=== PATIENT | female | born 1950 | race Caucasian/White ===

== ENCOUNTER → 2017-04-25 | Outpatient (CLI) | payer MEDICARE, OTHER ==
[~2017-04-25] MED LIST: ALBU90OI61; ALMOTRIPTAN; ALPR.25; CARI350; CODACE30; HYDCHL12.5; LISHYD1012; LORA2 PO; OMEP20ER PO; PROACE100 PO; RXLORA1 PO; TOPI25
[2017-04-27 11:29] LABS: HPV Genotype 16 Not Detected (NOTDET); HPV Genotype 18 Not Detected (NOTDET)
[2017-05-03 15:44] LABS: HPV High Risk Other Not Detected (NOTDET)
== END | disposition home or self-care (01) ==
LOC: LAB 10:18
PROVIDERS: Obstetrics & Gynecology
DX: N95.0 Postmenopausal bleeding (principal)
CPT/HCPCS: 87624; G0123

== ENCOUNTER 2017-06-30 11:50 | Day surgery (SDC) | payer MEDICARE, OTHER ==
[~2017-06-30] VITALS: Ht 167.6 cm; Wt 108.0 kg
[~2017-06-30 11:50] MED LIST changes: -ALBU90OI61
== END 2017-06-30 15:05 | disposition home or self-care (01) ==
LOC: ORSCSDS 11:50
PROVIDERS: Obstetrics & Gynecology
PROC: 0UDB8ZX Extraction of Endometrium, Via Natural or Artificial Opening Endoscopic, Diagnostic (ICD-10-PCS; principal; 2017-06-30 13:00)
PROC: 0UB98ZX Excision of Uterus, Via Natural or Artificial Opening Endoscopic, Diagnostic (ICD-10-PCS; principal; 2017-06-30 13:00)
DX: N95.0 Postmenopausal bleeding (principal); N84.0 Polyp of corpus uteri; I10 Essential (primary) hypertension; M79.7 Fibromyalgia; F41.9 Anxiety disorder, unspecified; Z87.891 Personal history of nicotine dependence; Z79.899 Other long term (current) drug therapy
CPT/HCPCS: 88305; J1885; J2250; J3010; J7040; J7120

== ENCOUNTER → 2017-09-26 | Outpatient (CLI) | payer MEDICARE, OTHER ==
[~2017-09-26] MED LIST changes: +ALBU90OI61
[2017-09-26 14:34] LABS: Alanine Aminotransfer (ALT/SGP 21 U/L (12-78); Albumin, Blood 3.9 g/dL (3.4-5.0); Albumin/Globulin Ratio 1.3 (0.8-1.8); Alk Phos 79 U/L (50-136); Anion Gap 7 mmol/L (6-16); Aspartate Aminotrans (AST/SGOT 25 U/L (12-37); Bilirubin, Total 0.6 mg/dL (0.1-1.0); Blood Urea Nitrogen 18 mg/dL (8-24); Bun/Creatinine Ratio 18.7 (12.0-20.0); CO2, Blood 31 mmol/L (21-32); Calcium, Blood 9.3 mg/dL (8.5-10.1); Chloride, Blood 104 mmol/L (98-108); Creatinine, Blood 0.97 mg/dL (0.40-1.00); Glomerular Filtration Rate >60 (60-); Glucose, Blood 97 mg/dL (70-99); Potassium, Blood 3.6 mmol/L (3.5-5.5); Sodium, Blood 142 mmol/L (136-145); Total Protein, Blood 6.9 g/dL (6.4-8.2)
== END | disposition home or self-care (01) ==
LOC: LAB SHORT 09:18 → LAB 09:18
PROVIDERS: Hospitalist
DX: R10.11 Right upper quadrant pain (principal)
CPT/HCPCS: 80053

== ENCOUNTER → 2017-09-28 | Outpatient (CLI) | payer MEDICARE, OTHER | END | disposition home or self-care (01) | LOC: PLD 07:25 → LAB SHORT 07:25 | DX: L30.8 Other specified dermatitis (principal) | CPT/HCPCS: 88305; 88313 ==

== ENCOUNTER 2017-10-27 23:42 | Emergency (ER) | payer MEDICARE, OTHER ==
[~2017-10-27] VITALS: Ht 170.2 cm; Wt 106.6 kg
== END 2017-10-28 00:59 | disposition home or self-care (01) ==
LOC: ER 23:42
DX: I10 Essential (primary) hypertension (principal); Z88.8 Allergy status to other drugs, medicaments and biological substances; Z91.048 Other nonmedicinal substance allergy status; Z88.5 Allergy status to narcotic agent; Z79.899 Other long term (current) drug therapy; K21.9 Gastro-esophageal reflux disease without esophagitis; Z87.891 Personal history of nicotine dependence
CPT/HCPCS: 99283

== ENCOUNTER → 2018-04-05 | Outpatient (CLI) | payer MEDICARE, OTHER ==
[2018-04-05 15:03] LABS: BASOPHILS ABSOLUTE AUTO 0.04 K/mm3 (0.00-0.23); BASOPHILS PERCENT AUTO 1 % (0-2); EOSINOPHILS ABSOLUTE AUTO 0.15 K/mm3 (0.00-0.68); EOSINOPHILS PERCENT AUTO 3 % (0-6); Hematocrit 43.3 % (33.0-51.0); Hemoglobin 14.7 g/dL (11.5-16.0); IMMATURE GRAN ABSOLUTE AUTO 0.01 K/mm3 (0.00-0.10); IMMATURE GRAN PERCENT AUTO 0 % (0-1); LYMPHOCYTES ABSOLUTE AUTO 1.25 K/mm3 (0.84-5.20); LYMPHOCYTES PERCENT AUTO 24 % (21-46); MONOCYTES ABSOLUTE AUTO 0.44 K/mm3 (0.16-1.47); MONOCYTES PERCENT AUTO 9 % (4-13); Mean Corpuscular HGB 32.4 pg (26.0-34.0); Mean Corpuscular HGB Conc 33.9 g/dL (31.5-36.5); Mean Corpuscular Volume 95 fL (80-100); Mean Platelet Volume 11.3 fL (9.1-12.4); NEUTROPHILS ABSOLUTE AUTO 3.28 K/mm3 (1.96-9.15); NEUTROPHILS PERCENT AUTO 63 % (41-73); Platelet Count 249 K/mm3 (150-400); RDW Coefficient Variation 13.3 % (11.7-14.2); RDW Standard Deviation 47.5 fL (35.1-46.3); Red Blood Cell Count 4.54 M/mm3 (3.80-5.20); White Blood Cell Count 5.17 K/mm3 (4.00-11.30)
== END | disposition home or self-care (01) ==
LOC: LAB SHORT 14:10 → LAB 14:10
PROVIDERS: Hospitalist
DX: R00.2 Palpitations (principal)
CPT/HCPCS: 85025

== ENCOUNTER 2020-05-23 08:59 | Day surgery (SDC) | payer MEDICARE, OTHER ==
[~2020-05-23 08:59] MED LIST changes: -HYDCHL12.5; +HYDCHL12.5 PO
[2020-06-05] MEDS ORDERED: ACET500 PO (16:02)
[2020-06-05] MEDS ORDERED: ASCO500 PO (16:02)
[2020-06-05] MEDS ORDERED: VITAMIN D310 MC4 PO (16:03)
[2020-06-05] MEDS ORDERED: MULVITA PO (16:03)
[2020-06-05] MEDS ORDERED: CARV6.25 PO (16:03)
[2020-06-05] MEDS ORDERED: TOCO1000 PO (16:04)
[2020-06-05] MEDS ORDERED: ZINC15 PO (16:04)
== END 2020-05-23 23:10 | disposition home or self-care (01) ==
LOC: MOI US 08:59 → MOI MAM 09:30 → MOI US 09:30 → MOI MAM 05-28 09:00 → MOI US 05-28 09:00
DX: C50.412 Malignant neoplasm of upper-outer quadrant of left female breast (principal); Z17.0 Estrogen receptor positive status [ER+]
CPT/HCPCS: 19083; 77065; 88305; 88342; 88360; A4648

== ENCOUNTER 2020-06-06 07:47 | Day surgery (SDC) | payer MEDICARE, OTHER ==
[~2020-06-06 07:47] MED LIST changes: +ACET500 PO; +ASCO500 PO; +CARV6.25 PO; +MULVITA PO; +TOCO1000 PO; +VITAMIN D310 MC4 PO; +ZINC15 PO
== END 2020-06-06 22:48 | disposition home or self-care (01) ==
LOC: MOI MAM 07:47
DX: C50.412 Malignant neoplasm of upper-outer quadrant of left female breast (principal); Z17.0 Estrogen receptor positive status [ER+]
CPT/HCPCS: 19285; 77065; A4648

== ENCOUNTER 2020-06-10 10:06 | Day surgery (SDC) | payer MEDICARE, OTHER ==
[~2020-06-10] VITALS: Ht 167.6 cm; Wt 124.6 kg
--- NOTE | 2020-06-10 12:36 | NUR ---
Ambulatory in Day Surgery History, Chart, Medications and Allergies reviewed before start of procedure.Patient confirms NPO status and agrees with scheduled surgery. Patient reports completing Chlorhexadine shower X2 prior to admission to hospital.
--- NOTE | 2020-06-10 17:47 | NUR ---
REVIEWED DC INSTRUCTIONS W/ PT SON ATILIO AND WITH PT. PT STATES LEG PAIN MIGHT BE COMING FROM HER BACK, STATES OVERALL PAIN BETTER THAN WHEN SHE WOKE UP IN PACU. GAVE NORCO PER ORDER, PT HAD PUDDING AND WATER, DISCUSSED PAIN MEDICATION WITH PT PT DOES NOT HAVE TRUE ALLERGY TO OXYCODONE AND CODEINE, PT AGREEABLE TO TRY HYDROCODONE ORDERED. BREAST BINDER ON,C/D/I. REPORT GIVEN TO STEVEN.
--- NOTE | 2020-06-10 18:15 | NUR ---
PT CONTINUES TO DENY ABD PAIN OR NAUSEA p MEDS. PT SITS AT SIDE OF BED c MINIMAL ASSISTANCE. IV DC'D, CATH INTACT AND PRESSURE DRESSING APPLIED. PT CONTINUES TO VERBALIZE AN UNDERSTANDING OF INSTRUCTIONS. NO QUESTIONS. ASSISTED c DRESSING, DRESSING CLEAN AND INTACT. TAKEN OTD IN NAD VIA WC. SON CONTINUES TO VERBALIZE AN UNDERSTANDING OF INSTRUCTIONS. TRANSFERS TO CAR s DIFFICULTY.
== END 2020-06-10 23:37 | disposition home or self-care (01) ==
LOC: NM 10:06 → ORSCMMR 10:06 → NM 11:30
PROVIDERS: Surgery
PROC: 07B60ZX Excision of Left Axillary Lymphatic, Open Approach, Diagnostic (ICD-10-PCS; principal; 2020-06-10 12:30)
PROC: 0HBU0ZZ Excision of Left Breast, Open Approach (ICD-10-PCS; principal; 2020-06-10 12:30)
DX: C50.412 Malignant neoplasm of upper-outer quadrant of left female breast (principal); Z17.0 Estrogen receptor positive status [ER+]; D36.0 Benign neoplasm of lymph nodes; I10 Essential (primary) hypertension; J44.9 Chronic obstructive pulmonary disease, unspecified; E66.01 Morbid (severe) obesity due to excess calories; Z68.41 Body mass index [BMI] 40.0-44.9, adult; Z79.899 Other long term (current) drug therapy
CPT/HCPCS: 38792; 76098; 88307; 88341; 88342; A9270; A9520; J0690; J1100; J1885; J2250; J2405; J2704; J3010; J7120; Q9968

== ENCOUNTER → 2020-08-18 | Outpatient (CLI) | payer MEDICARE, OTHER ==
[2020-08-19 10:55] LABS: Candida species (DNA Probe) Negative (NEGATIVE); G. vaginalis (DNA Probe) Negative (NEGATIVE); T. vaginalis (DNA Probe) Negative (NEGATIVE)
== END | disposition home or self-care (01) ==
LOC: LAB 15:46 → LAB SHORT 15:46
PROVIDERS: Obstetrics & Gynecology
DX: N76.0 Acute vaginitis (principal)
CPT/HCPCS: 87480; 87510; 87660

== ENCOUNTER → 2020-09-10 | Outpatient (CLI) | payer MEDICARE, OTHER | LOC: LAB SHORT 14:57 → LAB 14:57 | DX: N89.8 Other specified noninflammatory disorders of vagina (principal); Z88.8 Allergy status to other drugs, medicaments and biological substances; Z88.5 Allergy status to narcotic agent; Z91.048 Other nonmedicinal substance allergy status; Z88.6 Allergy status to analgesic agent | CPT/HCPCS: 87070; 87205 ==

== ENCOUNTER 2021-01-09 19:49 | Emergency (ER) | payer MEDICARE, OTHER ==
[~2021-01-09] VITALS: Ht 167.6 cm; Wt 121.6 kg
[2021-01-09 20:22] LABS: BASOPHILS ABSOLUTE AUTO 0.04 K/mm3 (0.00-0.23); BASOPHILS PERCENT AUTO 0 % (0-2); EOSINOPHILS ABSOLUTE AUTO 0.19 K/mm3 (0.00-0.68); EOSINOPHILS PERCENT AUTO 2 % (0-6); Hematocrit 42.9 % (33.0-51.0); Hemoglobin 14.6 g/dL (11.5-16.0); IMMATURE GRAN ABSOLUTE AUTO 0.02 K/mm3 (0.00-0.10); IMMATURE GRAN PERCENT AUTO 0 % (0-1); LYMPHOCYTES PERCENT AUTO 19 % (21-46); MONOCYTES PERCENT AUTO 9 % (4-13); Mean Corpuscular HGB 32.4 pg (26.0-34.0); Mean Corpuscular Volume 95 fL (80-100); Mean Platelet Volume 10.7 fL (9.1-12.4); NEUTROPHILS ABSOLUTE AUTO 6.61 K/mm3 (1.96-9.15); NEUTROPHILS PERCENT AUTO 70 % (41-73); Platelet Count 251 K/mm3 (150-400); RDW Coefficient Variation 13.7 % (11.7-14.2); RDW Standard Deviation 48.5 fL (35.1-46.3); Red Blood Cell Count 4.51 M/mm3 (3.80-5.20); White Blood Cell Count 9.46 K/mm3 (4.00-11.30)
[2021-01-09 20:41] LABS: Alanine Aminotransfer (ALT/SGP 23 U/L (12-78); Albumin, Blood 3.3 g/dL (3.4-5.0); Albumin/Globulin Ratio 0.8 (0.8-1.8); Alk Phos 75 U/L (50-136); Anion Gap 4 mmol/L (6-16); Aspartate Aminotrans (AST/SGOT 16 U/L (12-37); Bilirubin, Total 0.2 mg/dL (0.1-1.0); Blood Urea Nitrogen 21 mg/dL (8-24); CO2, Blood 28 mmol/L (21-32); Calcium, Blood 9.5 mg/dL (8.5-10.1); Chloride, Blood 110 mmol/L (98-108); Creatinine, Blood 0.95 mg/dL (0.40-1.00); Globulin, Blood 4.1 g/dL (2.2-4.0); Glomerular Filtration Rate 58 (60-); Glucose, Blood 121 mg/dL (70-99); Potassium, Blood 3.6 mmol/L (3.5-5.5); Sodium, Blood 142 mmol/L (136-145); Total Protein, Blood 7.4 g/dL (6.4-8.2); Troponin I <0.015 ng/mL (0.000-0.040)
== END 2021-01-09 22:32 | disposition home or self-care (01) ==
LOC: ER 19:49
PROVIDERS: Physician Assistant
DX: R07.2 Precordial pain (principal); Z91.048 Other nonmedicinal substance allergy status; Z88.8 Allergy status to other drugs, medicaments and biological substances; Z88.5 Allergy status to narcotic agent; Z88.1 Allergy status to other antibiotic agents; Z79.899 Other long term (current) drug therapy; K21.9 Gastro-esophageal reflux disease without esophagitis; I10 Essential (primary) hypertension; Z85.3 Personal history of malignant neoplasm of breast
CPT/HCPCS: 36415; 71045; 80053; 83690; 84484; 85025; 93005; 93010; 96374; 99285-25; J0360; J2060

== ENCOUNTER → 2021-08-03 | Outpatient (CLI) | payer MEDICARE, OTHER | END | disposition home or self-care (01) | LOC: LAB SHORT 08:55 | DX: R53.83 Other fatigue (principal) | CPT/HCPCS: 84443 ==

== ENCOUNTER → 2021-12-14 | Outpatient (CLI) | payer MEDICARE, OTHER ==
[2021-12-15 10:25] LABS: Candida species (DNA Probe) Negative (NEGATIVE); G. vaginalis (DNA Probe) Negative (NEGATIVE); T. vaginalis (DNA Probe) Negative (NEGATIVE)
== END | disposition home or self-care (01) ==
LOC: LAB SHORT 09:25 → LAB 09:25
PROVIDERS: Obstetrics & Gynecology
DX: N76.0 Acute vaginitis (principal)
CPT/HCPCS: 87480; 87510; 87660

== ENCOUNTER 2024-04-05 08:40 | Day surgery (SDC) | payer MEDICARE, OTHER ==
[~2024-04-05] VITALS: Ht 167.6 cm; Wt 124.0 kg
[~2024-04-05 08:40] MED LIST changes: +Lactated Ringer's 1,000 ML IV ONE
[2024-04-05] MEDS ORDERED: Lactated Ringer's 1,000 ML IV ONE (09:38)
[2024-04-05] MEDS ORDERED: propofoL 20 ML IV ONE (09:42)
[2024-04-05] MEDS ORDERED: Vasopressin 20 UNITS/ML 1ML Vial ONE (10:10)
[2024-04-05] MEDS ORDERED: FentaNYL Citrate 50 MCG/ML 2 ML Injection ONE (10:13)
[2024-04-05] MEDS ORDERED: Midazolam HCl 1MG / ML 2ML Vial ONE (10:13)
[2024-04-05] MEDS ORDERED: Dexamethasone Sod Phos 10 MG/ML 1ML VIAL ONE (10:24)
[2024-04-05] MEDS ORDERED: Ondansetron HCl 2 MG / ML 2ML Vial ONE (10:24)
[2024-04-05] MEDS ORDERED: Ketorolac Tromethamine 30mg Vial ONE (10:24)
--- NOTE | 2024-04-05 10:54 | NUR ---
04/05/24 1055 Eulalia Morrell MYOSURE NORMAL SALINE DEFIECT OF 55ML, 'S NOTIFIED
[2024-04-05] MEDS ORDERED: Bupivacaine 0.5% W/EPI 1:200000 SDV 30ML XX ONE (11:19)
[2024-04-05 11:49] VITALS: BP 168/76
--- NOTE | 2024-04-05 12:33 | NUR ---
04/05/24 1233 Terry Arambula PT REFUSED TYLENOL ORDERED BY DR GARCES. PT STATES SHE IS NOT HURTING.
== END 2024-04-05 12:25 | disposition home or self-care (01) ==
LOC: ORSCSDS 08:40
DX: N95.0 Postmenopausal bleeding (principal); N84.0 Polyp of corpus uteri; R93.89 Abnormal findings on diagnostic imaging of other specified body structures; N90.60 Unspecified hypertrophy of vulva
CPT/HCPCS: 88305; J1100; J1885; J2250; J2405; J2704; J3010; J7120